=== PATIENT | female | born 1980 | race American Indian/Alaskan Native ===

== ENCOUNTER 2017-12-21 14:07 | Emergency (ER) | payer MEDICAID, OTHER ==
--- NOTE | 2017-12-21 14:54 | EDM.PDOC ---
ED HPI GENERAL MEDICAL PROBLEM - General Stated Complaint: TOOTHACHE Time Seen by Provider: 12/21/17 14:48 Source of Information: Reports: Patient History Limitations: Reports: No Limitations - History of Present Illness INITIAL COMMENTS - FREE TEXT/NARRATIVE: 37 y.o.w.f came to the ed due to tooth ache. Pt tried tylenol and motrin, which did not help. Pt will see a dentist this week. No other acute medical issues at this time. BP 141/84 pulse 81 RR 18 pulse ox 99% on RA temp 36.9 Onset Date: 12/21/17 Onset Time: 08:00 Duration: Hour(s): Location: Reports: Face Quality: Reports: Ache Severity: Moderate Improves with: Reports: Medication Worsens with: Reports: Cold Therapy Context: Reports: Other - Related Data Allergies Allergy/AdvReac Type Severity Reaction Status Date / Time amoxicillin Allergy Hives Verified 12/21/17 14:57 diphenhydramine Allergy Hives Verified 12/21/17 14:57 [From Benadryl] Home Meds: Home Meds Acetaminophen/HYDROcodone [[place] 325-5 MG] 1 - 2 tab PO Q6H PRN #9 tab 12/21/17 [Rx] Amoxicillin/Potassium Clav [Augmentin 875-125 Tablet] 1 each PO BID #20 tablet 12/21/17 [Rx] Sulfamethoxazole/Trimethoprim [Bactrim Ds Tablet] 1 each PO BID #20 tablet 12/21 [Rx] ED ROS ENT - Review of Systems Review Of Systems: See Below Constitutional: Reports: No Symptoms HEENT: Reports: Dental Pain Respiratory: Reports: No Symptoms Cardiovascular: Reports: No Symptoms Endocrine: Reports: No Symptoms GI/Abdominal: Reports: No Symptoms : Reports: No Symptoms Musculoskeletal: Reports: No Symptoms Skin: Reports: No Symptoms Neurological: Reports: No Symptoms Psychiatric: Reports: No Symptoms Hematologic/Lymphatic: Reports: No Symptoms Immunologic: Reports: No Symptoms ED EXAM, ENT - Physical Exam Exam: See Below Exam Limited By: No Limitations General Appearance: Alert, WD/WN, Mild Distress Eye Exam: Bilateral Eye: Normal Inspection Ears: Normal External Exam, Normal Canal Nose: Normal Inspection, Normal Mucousa Mouth/Throat: Normal Lips, Dental Tenderness, Dental Trauma, Gum Swelling Head: Atraumatic, Normocephalic Neck: Normal Inspection, Supple, Non-Tender, Full Range of Motion Respiratory/Chest: No Respiratory Distress, Lungs Clear, Normal Breath Sounds, No Accessory Muscle Use Cardiovascular: Normal Peripheral Pulses, Regular Rate, Rhythm, No Edema, No Gallop GI/Abdominal: Normal Bowel Sounds, Soft, Non-Tender (Female) Exam: Deferred Rectal (Female) Exam: Deferred Back: Normal Inspection, Full Range of Motion Extremities: Normal Inspection, Normal Range of Motion, Non-Tender, No Pedal Edema Neurological: Alert, Oriented, CN II-XII Intact, Normal Cognition Psychiatric: Normal Affect Skin: Warm, Dry, Intact, Normal Color, No Rash Lymphatic: No Adenopathy Course - Vital Signs Text/Narrative:: 37 y.o.w.f came to the ed due to tooth ache. Pt tried tylenol and motrin, which did not help. Pt will see a dentist this week. No other acute medical issues at this time. BP 141/84 pulse 81 RR 18 pulse ox 99% on RA temp 36.9 PE: 37 y.o.w.f with toothache/gingivitis Impression: Poor dentition, gingivitis, toothache Tx: ABX and painmeds as prescription Plan: D/C with instruction Last Recorded V/S: Last Vital Signs Temp 36.7 C 12/21/17 14:07 Pulse 80 12/21/17 15:00 Resp 18 12/21/17 15:00 BP 152/96 H 12/21/17 15:00 Pulse Ox 100 12/21/17 15:00 Departure - Departure Time of Disposition: 14:50 Disposition: Home, Self-Care 01 Condition: Good Clinical Impression: Gingivitis, Toothache - Discharge Information Prescriptions: Acetaminophen/HYDROcodone [[place] 325-5 MG] 1 - 2 tab PO Q6H PRN #9 tab PRN Reason: severe pain Amoxicillin/Potassium Clav [Augmentin 875-125 Tablet] 1 each PO BID #20 tablet Sulfamethoxazole/Trimethoprim [Bactrim Ds Tablet] 1 each PO BID #20 tablet Instructions: Acetaminophen; Hydrocodone tablets or capsules, Gingivitis, Easy- to-Read, Sulfamethoxazole; Trimethoprim, SMX-TMP tablets Referrals: Negrito Whitney MD [Primary Care Provider] - Forms: ED Department Discharge Additional Instructions: Please take the pain meds as recommended, Please f/u with a dentist a.s.a.p. please come back to the ed if your symptoms get worse acutely
== END 2017-12-21 15:01 | disposition home or self-care (01) ==
LOC: FB.ED 14:07
DX: K05.10 Chronic gingivitis, plaque induced (principal); K08.9 Disorder of teeth and supporting structures, unspecified; Z88.1 Allergy status to other antibiotic agents; Z88.8 Allergy status to other drugs, medicaments and biological substances
CPT/HCPCS: 99282

== ENCOUNTER 2018-06-23 14:14 | Emergency (ER) | payer MEDICAID ==
[2018-06-23] MEDS ORDERED: Ketorolac 30 MG/ML SDV IM ONE (15:01)
--- NOTE | 2018-06-23 15:08 | EDM.PDOC ---
ED HPI GENERAL MEDICAL PROBLEM - General Chief Complaint: ENT Problem Stated Complaint: TOOTH ACHE Time Seen by Provider: 06/23/18 14:45 Source of Information: Reports: Patient History Limitations: Reports: No Limitations - History of Present Illness INITIAL COMMENTS - FREE TEXT/NARRATIVE: Adela comes in with a R lower toothache over the past weekend which is getting progressively worse. She has had dental infections in the past, and is aware that the tooth was fractured behind a filing for some time. She has taken NSAIDs for pain. - Related Data Allergies Allergy/AdvReac Type Severity Reaction Status Date / Time amoxicillin Allergy Hives Verified 12/21/17 14:57 diphenhydramine Allergy Hives Verified 12/21/17 14:57 [From Benadryl] Home Meds: Home Meds Acetaminophen/HYDROcodone [[employer] 325-5 MG] 1 - 2 tab PO Q6H PRN #9 tab 12/21/17 [Rx] Amoxicillin/Potassium Clav [Augmentin 875-125 Tablet] 1 each PO BID #20 tablet 12/21/17 [Rx] Sulfamethoxazole/Trimethoprim [Bactrim Ds Tablet] 1 each PO BID #20 tablet 12/21 [Rx] Clindamycin HCl [Cleocin HCl] 300 mg PO TID #14 capsule 06/23/18 [Rx] Past Medical History - Past Health History Medical/Surgical History: Denies Medical/Surgical History Social & Family History - Family History Family Medical History: Noncontributory - Caffeine Use Caffeine Use: Reports: Soda ED ROS ENT - Review of Systems Review Of Systems: ROS reveals no pertinent complaints other than HPI. ED EXAM, ENT - Physical Exam Exam: See Below Exam Limited By: No Limitations General Appearance: Alert, WD/WN, Mild Distress, Obese Eye Exam: Bilateral Eye: EOMI, Normal Inspection, PERRL Ears: Normal External Exam, Normal TMs Nose: Normal Inspection Mouth/Throat: Normal Lips, Normal Oropharynx, Dental Tenderness (#31 fractured with [place]) Head: Atraumatic, Normocephalic Neck: Normal Inspection, Supple, Non-Tender, Full Range of Motion Respiratory/Chest: Lungs Clear Cardiovascular: Regular Rate, Rhythm Back: Normal Inspection Extremities: Normal Inspection Neurological: Alert, Oriented, CN II-XII Intact, Normal Cognition, No Motor/ Sensory Deficits Psychiatric: Normal Affect, Normal Mood Skin: Warm, Dry, Intact Lymphatic: No Adenopathy Course - Vital Signs Text/Narrative:: I administered Toradol 30 mg IM for pain relief. - Orders/Labs/Meds Meds: Medications Discontinued Medications Generic Name Dose Route Start Last Admin Trade Name Shilpi PRN Reason Stop Dose Admin Ketorolac Tromethamine 30 mg 06/23/18 15:01 Toradol IM 06/23/18 15:02 ONETIME ONE Departure - Departure Time of Disposition: 15:10 Disposition: Home, Self-Care 01 Condition: Fair Clinical Impression: Infected dental caries - Discharge Information *PRESCRIPTION DRUG MONITORING PROGRAM REVIEWED*: Not Applicable *COPY OF PRESCRIPTION DRUG MONITORING REPORT IN PATIENT MARLA: Not Applicable Prescriptions: Clindamycin HCl [Cleocin HCl] 300 mg PO TID #14 capsule Referrals: Negrito Whitney MD [Primary Care Provider] - - Problem List & Annotations (1) Infected dental caries SNOMED Code(s): 61227485 Code(s): K02.9 - DENTAL CARIES, UNSPECIFIED; K04.7 - PERIAPICAL ABSCESS WITHOUT SINUS Status: Acute Current Visit: Yes Annotation/Comment:: I dispensed Clindamycin 300 mg cap tid pending DDS appt at [facility] tomorrow. She may take NSAIDs for pain relief. - Problem List Review Problem List Initiated/Reviewed/Updated: Yes - Assessment/Plan Plan: Follow up with DDS.
== END 2018-06-23 15:40 | disposition home or self-care (01) ==
LOC: FB.ED 14:14
DX: K04.7 Periapical abscess without sinus (principal); K02.9 Dental caries, unspecified; Z88.1 Allergy status to other antibiotic agents
CPT/HCPCS: 96372; 99282; J1885

== ENCOUNTER 2020-10-15 13:24 | Emergency (ER) | payer MEDICAID ==
--- NOTE | 2020-10-15 13:51 | EDM.PDOC ---
ED HPI GENERAL MEDICAL PROBLEM - General Chief Complaint: General Stated Complaint: WISDOM TOOTH PAIN Time Seen by Provider: 10/15/20 13:47 Source of Information: Reports: Patient History Limitations: Reports: No Limitations - History of Present Illness INITIAL COMMENTS - FREE TEXT/NARRATIVE: 40-year-old female who reports onset of left lower posterior dental pain 3 days ago and it has progressively worsened with time. She reports that she thinks it is an unerupted wisdom tooth that is behind her most posterior tooth on the left lower jaw. She reports that it is a sharp and aching and throbbing pain that she rates as an 8/10. She has taken Tylenol and ibuprofen and used Orajel for the pain and it initially was helping but is no longer helping with the pain. She has had no fevers or chills. There has been no trouble swallowing. No difficulty breathing. The pain is worse when she touches the area or when cold liquid hits the area. There are no other associated signs or symptoms. There are no other modifying factors. Onset: Other (3 days ago) Duration: Getting Worse Location: Reports: Other (Left lower dental pain) Quality: Reports: Sharp, Throbbing Severity: Moderate (to severe) Improves with: Reports: None Worsens with: Reports: Eating, Other (Palpation. 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, NSAIDS, Other Medication(s) (Orajel) Tooth/Teeth Pain Score (Numeric/FACES): 7 - Related Data Allergies Allergy/AdvReac Type Severity Reaction Status Date / Time amoxicillin Allergy Hives Verified 12/21/17 14:57 diphenhydramine Allergy Hives Verified 12/21/17 14:57 [From Benadryl] Home Meds: Home Meds clindamycin HCL [Cleocin HCl] 300 mg PO TID #14 capsule 06/23/18 [Rx] metFORMIN [Glucophage XR] 500 mg PO BIDMEALS 06/23/18 [History] Acetaminophen/HYDROcodone [[place] 325-5 MG] 1 - 2 tab PO Q6H PRN #10 tab 10/15/20 [Rx] Clindamycin HCl 450 mg PO TID 7 Days #63 capsule 10/15/20 [Rx] Past Medical History Endocrine/Metabolic History: Reports: Diabetes, Type II - Past Surgical History Other Surgical History Comment: No previous surgeries. Social & Family History - Family History Family Medical History: No Pertinent Family History - Tobacco Use Tobacco Use Status *Q: Unknown Ever Used Tobacco (Nonsmoker.) - Caffeine Use Caffeine Use: Reports: Soda - Alcohol Use Alcohol Use History: No - Living Situation & Occupation Occupation: Employed (Works at [employer] ED ROS GENERAL - Review of Systems Review Of Systems: See Below Constitutional: Reports: No Symptoms HEENT: Reports: Dental Pain Respiratory: Reports: No Symptoms Cardiovascular: Reports: No Symptoms Endocrine: Reports: No Symptoms GI/Abdominal: Reports: No Symptoms : Reports: No Symptoms Musculoskeletal: Reports: No Symptoms Skin: Reports: No Symptoms Neurological: Reports: No Symptoms Hematologic/Lymphatic: Reports: No Symptoms Immunologic: Reports: No Symptoms ED EXAM, GENERAL - Physical Exam Exam: See Below Exam Limited By: No Limitations General Appearance: Alert, WD/WN, Moderate Distress (In pain. She is nontoxic.) Eye Exam: Bilateral Eye: EOMI, Normal Inspection Ears: Normal External Exam, Hearing Grossly Normal Ear Exam: Bilateral Ear: Auricle Normal Nose: Normal Inspection, Normal Mucosa, No Blood Throat/Mouth: Normal Voice, No Airway Compromise, Inflammation (Around left posterior molar and posterior to the left posterior molar) Head: Atraumatic, Normocephalic Neck: Normal Inspection, Supple, Non-Tender, Full Range of Motion Respiratory/Chest: No Respiratory Distress, Lungs Clear, Normal Breath Sounds, No Accessory Muscle Use, Chest Non-Tender Cardiovascular: Normal Peripheral Pulses, Regular Rate, Rhythm, No Murmur Peripheral Pulses: 2+: Radial (L), Radial (R) GI/Abdominal: Normal Bowel Sounds, Soft, Non-Tender Back Exam: Normal Inspection Extremities: Normal Inspection, Normal Range of Motion, Non-Tender, Normal Capillary Refill, No Pedal Edema Neurological: Alert, Oriented, CN II-XII Intact, Normal Cognition, No Motor/Sensory Deficits Skin Exam: Warm, Dry, Intact, Normal Color, No Rash Course - Vital Signs Last Recorded V/S: Last Vital Signs Temp 36.9 C 10/15/20 13:24 Pulse 91 10/15/20 13:24 Resp 18 10/15/20 13:24 BP 159/92 H 10/15/20 13:24 Pulse Ox 98 10/15/20 13:24 - Re-Assessments/Exams Free Text/Narrative Re-Assessment/Exam: 10/15/20 13:55: Patient points to what appears to be an unerupted posterior molar/wisdom tooth on the left lower jaw as the source of the pain. There is some gingival erythema here but no pointing abscess. There is no posterior pharyngeal erythema. I will place the patient on antibiotics begin (clindamycin) and I will give her a small prescription of hydrocodone 5/325 for her pain. I have stressed that she needs to see a dentist as soon as she can arrange as this will be the only doctor that will be able to definitively take care of her luis alberto saucedo. Departure - Departure Time of Disposition: 14:00 Disposition: Home, Self-Care 01 Condition: Good Clinical Impression: Pain, dental, Dental infection - Discharge Information Prescriptions: Clindamycin HCl 450 mg PO TID 7 Days #63 capsule Acetaminophen/HYDROcodone [[place] 325-5 MG] 1 - 2 tab PO Q6H PRN #10 tab PRN Reason: [id number] pain Instructions: Dental Abscess, [id number] Referrals: Negrito Whitney MD [Primary Care Provider] - Forms: ED Department Discharge Additional Instructions: Your dental pain could possibly be either an impacted wisdom tooth or a dental infection as well. I'm placing you on antibiotics to treat for the potential infection (clindamycin). I have also given you a small number of hydrocodone 5/325 for your moderate to severe pain. You should continue to take ibuprofen 800 mg by mouth every 8 hours as needed for pain. You need to follow-up with a dentist as soon as you can arrange to definitively take care of this problem. Back to the emergency department for difficulty breathing, unrelenting vomiting, inability to swallow, swelling under your tongue or any other concerning sign or symptom. Sepsis Event Note (ED) - Focused Exam Vital Signs: Vital Signs Temp Pulse Resp BP Pulse Ox 10/15/20 13:24 36.9 C 91 18 159/92 H 98
== END 2020-10-15 14:10 | disposition home or self-care (01) ==
LOC: FB.ED 13:24
DX: K04.7 Periapical abscess without sinus (principal); E11.9 Type 2 diabetes mellitus without complications; Z79.84 Long term (current) use of oral hypoglycemic drugs; Z88.0 Allergy status to penicillin; Z88.8 Allergy status to other drugs, medicaments and biological substances
CPT/HCPCS: 99282; 99283

== ENCOUNTER 2020-11-15 03:28 | Emergency (ER) | payer MEDICAID ==
[2020-11-15] MEDS ORDERED: Acetaminophen/HYDROcodone 325-5 MG Tab PO ONE (03:29)
--- NOTE | 2020-11-15 03:57 | EDM.PDOC ---
ED HPI GENERAL MEDICAL PROBLEM - General Chief Complaint: ENT Problem Stated Complaint: TEETH ARE HURTING Time Seen by Provider: 11/15/20 03:51 Source of Information: Reports: Patient History Limitations: Reports: No Limitations - History of Present Illness INITIAL COMMENTS - FREE TEXT/NARRATIVE: Patient has had left lower wisdom tooth pain x 1 month. Pain is worse. She is currently taking Clindamycin and Ibuprofen. Patient ran out of [place]. She will be going to the walk-in Dentist at [facility] ([facility]) today. left side wisdom teeth Pain Score (Numeric/FACES): 8 - Related Data Allergies Allergy/AdvReac Type Severity Reaction Status Date / Time amoxicillin Allergy Hives Verified 12/21/17 14:57 diphenhydramine Allergy Hives Verified 12/21/17 14:57 [From Benadryl] Home Meds: Home Meds clindamycin HCL [Cleocin HCl] 300 mg PO TID #14 capsule 06/23/18 [Rx] metFORMIN [Glucophage XR] 500 mg PO BIDMEALS 06/23/18 [History] Acetaminophen/HYDROcodone [[place] 325-5 MG] 1 - 2 tab PO Q6H PRN #10 tab 10/15/20 [Rx] Clindamycin HCl 450 mg PO TID 7 Days #63 capsule 10/15/20 [Rx] Past Medical History - Past Health History Medical/Surgical History: Denies Medical/Surgical History Endocrine/Metabolic History: Reports: Diabetes, Type II - Past Surgical History Other Surgical History Comment: No previous surgeries. Social & Family History - Family History Family Medical History: No Pertinent Family History - Caffeine Use Caffeine Use: Reports: Soda - Living Situation & Occupation Occupation: Employed (Works at [employer] ED ROS GENERAL - Review of Systems Review Of Systems: Comprehensive ROS is negative, except as noted in HPI. ED EXAM, GENERAL - Physical Exam Exam: See Below Exam Limited By: No Limitations General Appearance: Alert, WD/WN, Mild Distress Throat/Mouth: Other (left lower gingival pain, no swelling) Head: Atraumatic, Normocephalic, Other (no facial swelling) Neck: Full Range of Motion Respiratory/Chest: No Respiratory Distress Back Exam: Full Range of Motion Extremities: Normal Range of Motion Neurological: Alert, Normal Cognition Psychiatric: Normal Affect, Normal Mood Skin Exam: Warm, Dry, Intact Course - Vital Signs Last Recorded V/S: Last Vital Signs Temp 36.6 C 11/15/20 03:28 Pulse 91 11/15/20 03:28 Resp 17 11/15/20 03:28 BP 185/113 H 11/15/20 03:28 Pulse Ox 99 11/15/20 03:28 - Re-Assessments/Exams Free Text/Narrative Re-Assessment/Exam: 11/15/20 03:55 Repeat BP: 172/110 Departure - Departure Time of Disposition: 03:56 Disposition: Home, Self-Care 01 Condition: Good Clinical Impression: Pain, dental - Discharge Information *PRESCRIPTION DRUG MONITORING PROGRAM REVIEWED*: Yes *COPY OF PRESCRIPTION DRUG MONITORING REPORT IN PATIENT MARLA: No Instructions: Acute Pain, Adult Forms: ED Department Discharge Additional Instructions: Take the [place] as directed. Continue the Clindamycin. Follow up with a Dentist today. Sepsis Event Note (ED) - Evaluation Sepsis Screening Result: No Definite Risk - Focused Exam Vital Signs: Vital Signs Temp Pulse Resp BP Pulse Ox 11/15/20 03:28 36.6 C 91 17 185/113 H 99
== END 2020-11-15 04:03 | disposition home or self-care (01) ==
LOC: FB.ED 03:28
DX: K08.89 Other specified disorders of teeth and supporting structures (principal); E11.9 Type 2 diabetes mellitus without complications; Z88.0 Allergy status to penicillin; Z88.8 Allergy status to other drugs, medicaments and biological substances; Z79.899 Other long term (current) drug therapy
CPT/HCPCS: 99282; A9270-GY

== ENCOUNTER 2022-06-28 12:41 | Emergency (ER) | payer SELFPAY ==
[2022-06-28] MEDS ORDERED: Alum Hydroxide/Mag Hydroxide 30 ML, Lidocaine 2% 15 ML PO ONE ×2 (13:40)
[2022-06-28 14:13] LABS: ESTIMATED GFR 93 mL/min (>60)
== END 2022-06-28 15:47 | disposition home or self-care (01) ==
LOC: FB.ED 12:41
DX: K21.00 Gastro-esophageal reflux disease with esophagitis, without bleeding (principal); E11.9 Type 2 diabetes mellitus without complications; Z88.0 Allergy status to penicillin; Z88.8 Allergy status to other drugs, medicaments and biological substances; Z79.899 Other long term (current) drug therapy; Z79.84 Long term (current) use of oral hypoglycemic drugs
CPT/HCPCS: 36415; 71046; 80053; 84484; 85025; 85379; 86140; 93005; 99285; A9270